=== PATIENT | female | born 1970 | race Caucasian/White ===

== ENCOUNTER 2018-10-04 07:37 | Emergency (ER) | payer SELFPAY, OTHER ==
[2018-10-04] MEDS: KETOROLAC 60 MG INJ IM (08:13)
[2018-10-04] MEDS: DEXAMETHASONE 10 MG/ML 1 ML INJ IM (08:13)
== END 2018-10-04 08:16 | disposition home or self-care (01) ==
LOC: FTE 07:37
DX: M54.5 Low back pain (principal)
CPT/HCPCS: 81025; 96372; 99284-25